=== PATIENT | male | born 1975 | race Asian ===

== ENCOUNTER 2022-09-20 12:26 | Emergency (ER) | payer OTHER ==
[~2022-09-20] VITALS: Ht 172.7 cm; Wt 72.6 kg
[2022-09-20 12:30] VITALS: BP_SYST 172
--- NOTE | 2022-09-20 12:30 | NUR ---
BIB EMS FROM HOME WITH C/O SEVERE LEFT FLANK PAIN -03/03 SINCE THIS MORNING. PER EMS, PT HAD A KIDNEY TRANSPLANT DONE 6 MONTHS AGO. PT STATES HE HAS HAD THIS PAIN BEFORE AND WENT TO THE HOSPITAL FOR PAIN TREATMENT. PT CURRENTLY HAD REBOUND TENDERNESS ON HIS LEFT SIDE OF HIS BACK. VITALS ON SCENE: BP - 178/101 HR - 93 O2 - 99% HX - HTN, KIDNEY TRANSPLANT. PT IS AAX04, VSS, NAD, BREATHING IS EVEN AND UNLABORED, SKIN INTACT. PT IS AMBULATORY WITH STEADY GAIT, PT IN GOWN. 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 HOB ELEVADED, SIDE RAILS UP, BED IN LOWEST POSITION, CALL LIGHT WITHIN REACH. PENDING MD BAHENA AND ORDERS
--- NOTE | 2022-09-20 12:35 | NUR ---
Patient to ER bed 3 to gown for evaluation. Side rails up. Report given to Jefe MEREDITH.
--- NOTE | 2022-09-20 12:36 | NUR ---
Yeimi romoporsha in EDM - 09/20/22 at 1244 by [id number] Patient to ED at this time with c/o right flank pain described as squeezing today. Patient to CT scan at this time in stable condition
--- NOTE | 2022-09-20 12:48 | NUR ---
Patient to Ed at this time with complaints of right lower flank pank described as pounding. patient to CT scan in stable condition.
--- NOTE | 2022-09-20 13:03 | NUR ---
WAITING FOR URINE SPECIMEN. PATIENT GIVEN URINAL AND WILL ATTEMPT. MD AT BEDSIDE
[2022-09-20 13:23] LABS: BILIRUBIN,URINE NEGATIVE (NEGATIVE); CLARITY/URINE CLEAR (CLEAR); COLOR,URINE YELLOW (YELLOW); GLUCOSE,URINE NEGATIVE (NEGATIVE); KETONES,URINE NEGATIVE (NEGATIVE); LEUKOCYTE ESTERASE ,URINE NEGATIVE (NEGATIVE); NITRITE, URINE NEGATIVE (NEGATIVE); PROTEIN URINE 1+ (NEGATIVE); UROBILINOGEN,URINE 0.2 (0.2-1.0)
[2022-09-20 13:24] LABS: BLOOD, URINE TRACE (NEGATIVE)
[2022-09-20 13:25] LABS: BASOPHILS % (AUTO) 0.3 % (0.0-2.0); EOSINOPHILS % (AUTO) 0.5 % (0.0-4.0); HEMATOCRIT 43.2 % (36-54); HEMOGLOBIN 14.3 g/dL (14.0-18.0); LYMPHOCYTES # (AUTO) 0.8 K/uL (1.0-5.5); LYMPHOCYTES % (AUTO) 11.5 % (20.5-51.5); MEAN CORPUSCULAR HEMOGLOBIN 29 pg (27-31); MEAN CORPUSCULAR HGB CONC 33 % (32-36); MEAN CORPUSCULAR VOLUME 88 fL (79.0-98.0); MONOCYTES # (AUTO) 0.5 K/uL (0.0-1.0); MONOCYTES % (AUTO) 6.4 % (1.7-9.3); NEUTROPHILS # (AUTO) 5.7 K/uL (1.8-7.7); NEUTROPHILS % (AUTO) 81.3 % (40.0-70.0); PLATELET COUNT (AUTO) 182 K/uL (130-430); RED BLOOD CELL COUNT(AUTO) 4.89 MIL/uL (4.2-6.2); RED CELL DISTRIBUTION WIDTH 13.8 % (9.0-15.0)
[2022-09-20 13:35] LABS: BACTERIA,URINE None Seen /HPF (None Seen); WBC,URINE NONE SEEN /HPF (0-3)
[2022-09-20 13:36] LABS: CALCIUM 9.4 mg/dL (8.4-11.0); CREATININE 2.03 mg/dL (0.55-1.30)
[2022-09-20 13:41] LABS: TOTAL BILIRUBIN 0.4 mg/dL (0.0-1.0)
--- NOTE | 2022-09-20 14:42 | NUR ---
PATIENT DENIES PAIN AT THIS TIME, SPOUSE AT BEDSIDE WITH PATIENT AT THIS TIME, PATIENT B/P CONTINUES TO BE HYPERTENSIVES.
[2022-09-20 14:46] VITALS: BP_SYST 179
--- NOTE | 2022-09-20 14:53 | NUR ---
Patient given written and verbal discharge instructions and verbalizes understanding. ER MD discussed with patient the results and treatment provided. Patient in stable condition. ID arm band removed. IV catheter removed intact and dressing applied, no active bleeding. Rx of given. Patient educated on pain management and to follow up with PMD. Pain Scale . Opportunity for questions provided and answered. Medication side effect fact sheet provided.
== END 2022-09-20 14:53 | disposition home or self-care (01) ==
LOC: SED 12:26
DX: R10.31 Right lower quadrant pain (principal); I10 Essential (primary) hypertension; Z79.899 Other long term (current) drug therapy
CPT/HCPCS: 36415; 76376; 80053; 81000; 83690; 85025; 99284